=== PATIENT | male | born 1960 | race Caucasian/White ===

== ENCOUNTER 2018-07-14 10:07 | Emergency (ER) | payer BC, OTHER ==
--- NOTE | 2018-07-14 11:44 | EDM.PDOC ---
ED HPI GENERAL MEDICAL PROBLEM - General Chief Complaint: Chest Pain Stated Complaint: CHEST PAIN Time Seen by Provider: 07/14/18 10:25 Source of Information: Reports: Patient, Family () History Limitations: Reports: No Limitations - History of Present Illness INITIAL COMMENTS - FREE TEXT/NARRATIVE: The patient states that he was woken around 01:00 this morning with left pectoral area discomfort that extended to his left shoulder and left scapula, down his left upper extremity to just above his left elbow, and to his left upper quadrant. He describes the discomfort as similar to "crunching" muscles, like a muscle spasm. He states that he felt diaphoretic and clammy. He states that he felt the need to belch, but he did not have nausea, per se. He did not have any dyspnea or sense of impending doom. The patient states that he got up and that his discomfort resolved around 03: 30. He states that he went back to bed, but the discomfort quickly returned, therefore he got up a second time, and the discomfort resolved again around 04: 50. It has not returned. He states that in addition to relief by being upright, he also felt some relief if he pulled his left upper extremity across his chest. He has not identified any other modifiers. Prior similar symptoms. No recent viral-like illnesses. The patient's PCP is Dr. Mccrary. Chest Pain Score (Numeric/FACES): 0 - Related Data Allergies Allergy/AdvReac Type Severity Reaction Status Date / Time No Known Allergies Allergy Verified 07/14/18 10:12 Home Meds: Home Meds Rosuvastatin [Crestor] 10 mg PO BEDTIME 07/14/18 [History] Past Medical History Cardiovascular History: Reports: High Cholesterol Genitourinary History: Reports: Other (See Below) (Solitary right kidney) - Past Surgical History HEENT Surgical History: Reports: Oral Surgery (wisdom teeth extraction) GI Surgical History: Reports: Hernia, Inguinal (left) Male Surgical History: Reports: Nephrectomy (Left, donated, 2015) Social & Family History - Tobacco Use Smoking Status *Q: Never Smoker - Alcohol Use Alcohol Use History: No - Recreational Drug Use Recreational Drug Use: No - Living Situation & Occupation Living situation: Reports: , with Spouse Occupation: Employed ([employer]) ED ROS GENERAL - Review of Systems Review Of Systems: ROS reveals no pertinent complaints other than HPI. ED EXAM, GENERAL - Physical Exam Exam: See Below Exam Limited By: No Limitations General Appearance: Alert, WD/WN, No Apparent Distress Eye Exam: Bilateral Eye: EOMI, Normal Inspection Ears: Normal External Exam, Hearing Grossly Normal Nose: Normal Inspection Throat/Mouth: Normal Inspection, Normal Lips, Normal Voice, No Airway Compromise Head: Atraumatic, Normocephalic Neck: Normal Inspection, Full Range of Motion Respiratory/Chest: No Respiratory Distress, Lungs Clear, Normal Breath Sounds, No Accessory Muscle Use, Chest Non-Tender Cardiovascular: Normal Peripheral Pulses, Regular Rate, Rhythm, No Edema, No Gallop, No JVD, No Murmur, No Rub Peripheral Pulses: 4+: Radial (L), Radial (R) GI/Abdominal: Normal Bowel Sounds, Soft, Non-Tender (including LUQ), No Organomegaly, No Distention, No Abnormal Bruit, No Mass (Male) Exam: Deferred Rectal (Males) Exam: Deferred Back Exam: Normal Inspection, Full Range of Motion, NT Extremities: Normal Inspection, Normal Range of Motion, Non-Tender (including left shoulder, left scapula, and upper left arm), No Pedal Edema, Normal Capillary Refill Neurological: Alert, Oriented, Normal Cognition, No Motor/Sensory Deficits Psychiatric: Normal Affect Skin Exam: Warm, Dry, Intact, Normal Color, No Rash EKG INTERPRETATION EKG Date: 07/14/18 Time: 10:12 Rhythm: NSR Rate (Beats/Min): 73 [place]: RAD-Right [place] Deviation P-Wave: Present QRS: Normal ST-T: Elevated (Diffuse J-point elevation. No ischemic changes.) QT: Normal Comparison: NA - No Prior EKG Course - Vital Signs Last Recorded V/S: Last Vital Signs Temp 36.6 C 07/14/18 10:13 Pulse 80 07/14/18 10:13 Resp 15 07/14/18 10:13 BP 111/75 07/14/18 10:13 Pulse Ox 99 07/14/18 10:13 - Orders/Labs/Meds Orders: Active Orders 24 hr Category Date Time Status EKG 12 Lead [EKG Documentation Completion] [RC] STAT Care 07/14/18 10:16 Active Chest 2V [CR] Stat Exams 07/14/18 10:47 Taken Colchicine [Colcrys] Med 07/14/18 12:13 Once 0.6 mg PO ONETIME ONE Ibuprofen [Motrin] Med 07/14/18 12:13 Once 600 mg PO ONETIME ONE Labs: Laboratory Tests 07/14/18 07/14/18 07/14/18 Range/Units 10:22 10:22 10:22 WBC 9.05 (4.23-9.07) K/mm3 RBC 4.72 (4.63-6.08) M/mm3 Hgb 14.4 (13.7-17.5) gm/L Hct 43.8 (40.1-51.0) % MCV 92.8 H (79.0-92.2) fl MCH 30.5 (25.7-32.2) pg MCHC 32.9 (32.2-35.5) g/dl RDW Std Deviation 43.0 (35.1-43.9) fL Plt Count 183 (163-337) K/mm3 MPV 10.9 (9.4-12.3) fl Neut % (Auto) Cancelled Lymph % (Auto) Cancelled [place] % (Auto) Cancelled Eos % (Auto) Cancelled Baso % (Auto) Cancelled Neut # (Auto) Cancelled Lymph # (Auto) Cancelled [place] # (Auto) Cancelled Eos # (Auto) Cancelled Baso # (Auto) Cancelled Neutrophils % (Manual) 66 H (40-60) % Band Neutrophils % 0 (0-10) % Lymphocytes % (Manual) 28 (20-40) % Atypical Lymphs % 0 % Monocytes % (Manual) 5 (2-10) % Eosinophils % (Manual) 1 (0.8-7.0) % Basophils % (Manual) 0 L (0.2-1.2) Manual Slide Review Cancelled Platelet Estimate Adequate RBC Morph Comment Normal D-Dimer, Quantitative (0.19-0.50) mg/L Sodium 144 (136-145) mEq/L Potassium 4.0 (3.5-5.1) mEq/L Chloride 108 H (98-107) mEq/L Carbon Dioxide 29 (21-32) mEq/L Anion Gap 11.0 (5-15) BUN 24 H (7-18) mg/dL Creatinine 1.5 H (0.7-1.3) mg/dL Est Cr Clr Drug Dosing 61.65 mL/min Estimated GFR (MDRD) 48 (>60) mL/min BUN/Creatinine Ratio 16.0 (14-18) Glucose 82 (74-106) mg/dL Calcium 8.9 (8.5-10.1) mg/dL Total Bilirubin 0.4 (0.2-1.0) mg/dL AST 26 (15-37) U/L ALT 38 (16-63) U/L Alkaline Phosphatase 127 H (46-116) U/L Troponin I < 0.017 (0.00-0.056) ng/mL C-Reactive Protein (<1.0) mg/dL Total Protein 7.1 (6.4-8.2) g/dl Albumin 3.6 (3.4-5.0) g/dl Globulin 3.5 gm/dL Albumin/Globulin Ratio 1.0 (1-2) 07/14/18 07/14/18 Range/Units 10:22 10:22 WBC (4.23-9.07) K/mm3 RBC (4.63-6.08) M/mm3 Hgb (13.7-17.5) gm/L Hct (40.1-51.0) % MCV (79.0-92.2) fl MCH (25.7-32.2) pg MCHC (32.2-35.5) g/dl RDW Std Deviation (35.1-43.9) fL Plt Count (163-337) K/mm3 MPV (9.4-12.3) fl Neut % (Auto) Lymph % (Auto) [place] % (Auto) Eos % (Auto) Baso % (Auto) Neut # (Auto) Lymph # (Auto) [place] # (Auto) Eos # (Auto) Baso # (Auto) Neutrophils % (Manual) (40-60) % Band Neutrophils % (0-10) % Lymphocytes % (Manual) (20-40) % Atypical Lymphs % % Monocytes % (Manual) (2-10) % Eosinophils % (Manual) (0.8-7.0) % Basophils % (Manual) (0.2-1.2) Manual Slide Review Platelet Estimate RBC Morph Comment D-Dimer, Quantitative 0.23 (0.19-0.50) mg/L Sodium (136-145) mEq/L Potassium (3.5-5.1) mEq/L Chloride (98-107) mEq/L Carbon Dioxide (21-32) mEq/L Anion Gap (5-15) BUN (7-18) mg/dL Creatinine (0.7-1.3) mg/dL Est Cr Clr Drug Dosing mL/min Estimated GFR (MDRD) (>60) mL/min BUN/Creatinine Ratio (14-18) Glucose (74-106) mg/dL Calcium (8.5-10.1) mg/dL Total Bilirubin (0.2-1.0) mg/dL AST (15-37) U/L ALT (16-63) U/L Alkaline Phosphatase (46-116) U/L Troponin I (0.00-0.056) ng/mL C-Reactive Protein 0.5 (<1.0) mg/dL Total Protein (6.4-8.2) g/dl Albumin (3.4-5.0) g/dl Globulin gm/dL Albumin/Globulin Ratio (1-2) - Re-Assessments/Exams Free Text/Narrative Re-Assessment/Exam: 07/14/18 11:53 2-view chest radiograph appears to be grossly normal. Cardiac silhouette is within normal limits. No pulmonary vascular congestion. No pleural effusions. No focal infiltrate. No pneumothorax. Formal read per the Radiologist pending. 07/14/18 12:14 By clinical history and by ECG, the patient appears to have acute pericarditis. Current guidelines recommend treatment with colchicine 0.6 mg po BID and an NSAID, such as ibuprofen, for up to 3 months, or until resolution of symptoms, however, I'm only going to write for a week's worth, with the recommendation that the patient follow-up with Dr. Mccrary later this week. 07/14/18 12:29 The above was discussed with the patient and his . The patient states that he was told by [facility] (not by a [place] [employer]) and that he should never take an NSAID, ever. That advice is not correct, but was likely given to the patient out of simplicity. Patients with a solitary kidney or underlying renal dysfunction can take NSAIDs, but they need to make sure that the doses are non-toxic, and are usually spaced further apart, in order to prevent accumulation, as the metabolic half life is increased. So that my advice does not run afoul of Dr. Mccrary's, and because treatment of pericarditis is non-emergent, we have agreed to not treat the patient with anything at this time, then have the patient follow-up with Dr. Mccrary this week. Departure - Departure Time of Disposition: 12:33 Disposition: Home, Self-Care 01 Condition: Good Clinical Impression: Acute pericarditis, Chronic renal insufficiency Referrals: Nicola Mccrary MD [Primary Care Provider] - Forms: ED Department Discharge Additional Instructions: You were seen in the emergency room for left-sided chest pain, extending to your left shoulder, down your left arm, and to your left upper abdomen. Your pain was made worse by lying down, better by being upright. Workup in the ER included blood work, a chest x-ray, and an ECG. Based on your history, physical examination, and ER workup, your chest pain is due to acute pericarditis = inflammation of the bag that your heart sits in. Because of your history of donating a kidney, we have elected to not treat you with any medication at this time. Instead, you will follow-up with your PCP, Dr. Mccrary, this week, to discuss treatment options. Dr. Mccrary will want to know: Your BUN/Cr today are 24/1.5 The remainder of your blood work (CBC, CMP, Troponin, CRP, D-dimer) were normal. Your ECG showed diffuse J-point elevation, but no ischemic changes, and your QTc was within normal limits at 407 ms. Current guidelines recommend treatment with colchicine, 0.6 mg BID and an NSAID , such as ibuprofen, for up to 3 months, or at least until resolution of symptoms. If any other problems, please do not hesitate to return to the ER. - My Orders Last 24 Hours: My Active Orders 07/14/18 10:16 EKG 12 Lead [EKG Documentation Completion] [RC] STAT 07/14/18 10:47 Chest 2V [CR] Stat 07/14/18 12:13 Colchicine [Colcrys] 0.6 mg PO ONETIME ONE Ibuprofen [Motrin] 600 mg PO ONETIME ONE - Assessment/Plan Last 24 Hours: My Active Orders 07/14/18 10:16 EKG 12 Lead [EKG Documentation Completion] [RC] STAT 07/14/18 10:47 Chest 2V [CR] Stat 07/14/18 12:13 Colchicine [Colcrys] 0.6 mg PO ONETIME ONE Ibuprofen [Motrin] 600 mg PO ONETIME ONE
[2018-07-14] MEDS ORDERED: Colchicine 0.6 MG Tab PO ONE (12:13)
[2018-07-14] MEDS ORDERED: Ibuprofen 600 MG Tab PO ONE (12:13)
--- NOTE | 2018-07-15 07:46 | CR ---
Chest: Two views of the chest were obtained. Comparison: No prior chest x-ray. Heart size and mediastinum are normal. Lungs are clear. Bony structures are within normal limits for the patient's age. Impression: 1. Nothing acute is seen on two-view chest x-ray. Diagnostic code #2
== END 2018-07-14 13:05 | disposition home or self-care (01) ==
LOC: JD.ED 10:07
DX: I31.9 Disease of pericardium, unspecified (principal); N18.9 Chronic kidney disease, unspecified; E78.00 Pure hypercholesterolemia, unspecified
CPT/HCPCS: 36415; 71046; 71046-26; 80053; 84484; 85007; 85027; 85379; 86140; 93005; 93010; 99284-25; 99285-25